=== PATIENT | male | born 1940 | race Caucasian/White ===

== ENCOUNTER 2020-07-25 08:11 | Outpatient (CLI) | payer MEDICARE, SELFPAY ==
--- NOTE | 2020-07-26 14:31 | WPDHOMESLEEP ---
Sleep Study - Home Date of Study: 07/25/20 Ordering Provider: Laura Mckeon MD Interpreting Physician: Laura Mckeon MD Home Sleep Study Type: Apnea Link Air Height: 1.75 m Weight: 97.069 kg Body Mass Index: 31.6 Oil Trough: 13 Reason for Sleep Study History of CPAP since 1989, using same device which broke 2 months ago Sleep History Ayan Mondragon is a 79 year old man man started using CPAP in the with good response, and has continued to use the same device until 2 months ago when it broke. He snores, occasionally has trouble falling asleep with a cold, occasionally wakes up gasping for breath and occasionally has breathing problems at night witnessed by others. Rarely sweats excessively at night, and does not notice his heart pounding or beating irregularly at night. He occasionally falls asleep in the day, never while driving or involuntarily. He does not feel paralyzed on falling asleep or waking, occasionally has vivid dream like scences on waking or falling asleep. He is never afraid to go to sleep and does not have nightmares. He occasionally remembers his dreams. He does not feel sad or depressed, anxious, and does not have racing thoughts. He denies muscular tension, rarely notices parts of his body jerking, occasionally kicks at night. He does not have uncomfortable feelings in his legs at night. He does not grind his teeth at night, is not awakened by pain at night, rarely feels stiff in the am. He has headaches. Bedtime is 9:00 p.m. falling asleep quickly, wakes throughout the night in the early, middle of the night and in the product assembler hours for 15 minutes or longer, waking at 5:00 am, not feeling refreshed. CPAP is not giving him the same level of improvement at it did initially. Best body position at night is on his side then he rolls to his back and eventually is on his left side. He drinks 2-3 cups of coffee in the morning, occasionally takes a nap. 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 His memory, mood and concentration are acceptable for his daily needs in long term. He has a strong family history of dementia, and wants SANAM treated to avoid the termite control representative possibility of this condition. [facility] Past Medical History Medical History (Updated 07/26/20 @ 14:50 by Laura Mckeon MD) Hyperlipemia Hypertension Obstructive sleep apnea Skin cancer, upper extremity left hand and elbow, removed Sleep apnea Surgical History Surgical History (Updated 04/18/20 @ 12:56 by Laura Mckeon MD) History of hernia repair History of knee surgery R TKR S/P carpal tunnel release Family History Family History (Updated 04/18/20 @ 12:54 by Laura Mckeon MD) Mother , age 82 with dementia, breast cancer Breast cancer Sibling , Natasha March 2020, @ 85, dementia Dementia Father , age 42, cancer, boilermaker welder in [place] War [place] No problems noted. Sibling , Bernardo @ 57 yo colon cancer Colon cancer Sibling , Du from CHF, acromegaly, worked for [employer] Heart disease CHF Sibling , Eric @ 57 CHF, worked for [employer], [employer]. 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 He also has his grandson, grandson's , 2-year-old and baby living with them. He was in the service in 1958. Smoking packs per day: 1 Smoking cigarettes per day: 20.0 Years smoked: 35 Smoking pack-years: 35.00 Smoking status: Former smoker Tobacco type: cigarettes Alcohol intake: current Drinks per week: 2 Substance use: never Medications aspirin 81 mg tablet,delayed release 81 mg PO DAILY 04/18/20 [History] lisinopril 20 mg-hydrochloro
[2020-07-26 15:08] VITALS: BMI 31.6
== END 2020-07-25 08:12 | disposition home or self-care (01) ==
LOC: ANHCSM 08:12
PROVIDERS: Visit Provider Internal Medicine Critical Care Medicine
DX: G47.33 Obstructive sleep apnea (adult) (pediatric) (principal)
CPT/HCPCS: 95806

== ENCOUNTER 2023-07-17 15:29 | Emergency (ER) | payer MEDICARE, SELFPAY ==
[2023-07-17] VITALS (19 sets, daily range): BP systolic 105–182; BP diastolic 43–89; PULSE 70–117; RESP 12–23; TEMP 37.2; O2SAT 96–100
--- NOTE | ~2023-07-17 | XR_ITS ---
EXAMINATION: XR chest 2V DATE: 07/17/2023 16:13 INDICATION: Chest pain TECHNIQUE: PA and lateral views of the chest are obtained. COMPARISON: None available FINDINGS: There are bibasilar airspace opacities. There is a small right pleural effusion. No pneumot horax is identified. Cardiomegaly is noted. There are bridging osteophytes at multiple levels in the spine, consistent with diffuse idiopathic skeletal hyperostosis (DISH). There is a questionable fusif orm aneurysm of the ascending aorta. IMPRESSION: 1. Bibasilar airspace opacities, consistent with atelectasis versus pneumonia. 2. Small right pleural effusion. 3. Cardiomegaly. 4. 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 Reviewed, dictated and finalized at location L.
--- NOTE | 2023-07-17 15:37 | ECG_ITS ---
Measurements Intervals [place] Rate: 71 P: CT: 0 QRS: 59 QRSD: 155 T: 48 QT: 432 QTc: 473 Interpretive Statements SINUS RHYTHM WITH FIRST DEGREE AV BLOCK RIGHT BUNDLE BRANCH BLOCK BASELINE ARTIFACT- I, II, III, AVR, AVL, AVF, V1-V2 ABNORMAL ECG NO PREVIOUS ECG AVAILABLE FOR COMPARISON Electronically Signed On 07-17-2023 15:52:09 CDT by Stephan Guillory D.O.
[2023-07-17 16:09] LABS: Basophils Percent Auto 0.5 % (0.2-1.2); Eosinophils Absolute Auto 0.1 K/mm3 (0-0.3); Eosinophils Percent Auto 1.8 % (0-4.4); Hematocrit 37.5 % (42.0-52.0); Hemoglobin 12.2 g/dL (14.0-18.0); Immature Granulocyte Absolute 0.01 K/mm3 (0.00-0.031); Immature Granulocyte Percent A 0.2 % (0-0.5); Lymphocytes Percent Auto 30.3 % (18.3-44.2); Mean Corpuscular HGB Conc 32.5 g/dl (32-36); Mean Corpuscular Hemoglobin 30.5 pg (26-34); Mean Corpuscular Volume 93.8 fl (80-100); Mean Platelet Volume 10.7 fl (7.4-10.4); Monocytes Absolute Auto 0.4 K/mm3 (0.1-0.6); Monocytes Percent Auto 6.6 % (2.6-8.5); Neutrophils Absolute Auto 3.6 K/mm3 (1.3-6.7); Neutrophils Percent Auto 60.6 % (45.5-73.1); Platelet Count Result 147 k/mm3 (150-375); Red Cell Distribution Width 13.6 % (11.5-14.5)
[2023-07-17 16:20] LABS: Partial Thromboplastin Time 27.1 SECONDS (22.3-36.8)
[2023-07-17 16:21] LABS: Alanine Aminotransferase 18 U/L (6-50); Albumin Level 4.7 g/dL (3.5-5.1); Alkaline Phosphatase 113 U/L (38-126); Anion Gap 10 mmol/L (8-16); Aspartate Amino Transferase 26 U/L (17-59); Bilirubin,Total 1.2 mg/dL (0.2-1.3); Blood Urea Nitrogen 37 mg/dL (9-20); Calcium 9.4 mg/dL (8.4-10.2); Carbon Dioxide 27 mmol/L (22-30); Chloride 103 mmol/L (98-107); Estimated CRCL calculation 36 ml/min; Estimated Glomerular Filt Rate 45; Glucose 124 mg/dL (65-110); Lipase 137 U/L (23-300); Potassium 3.9 mmol/L (3.4-5.0); Sodium 140 mmol/L (137-145)
[2023-07-17 16:32] LABS: Troponin I < 0.012 ng/mL (0.000-0.034)
--- NOTE | 2023-07-17 18:21 | ED.GENADULT ---
HPI - General Adult General Chief complaint: Unspecified Stated complaint: eye problem, increased pain Time Seen by Provider: 07/17/23 17:58 Source: patient Mode of arrival: ambulatory Limitations: other (very hard of hearing) History of Present Illness HPI narrative: This is a 82 year old male that presents to the ER for right eye pain. Ongoing since last night. Reports this morning when he woke up his vision was worse than usual. Reports history of macular degeneration. Reports he has had persistent vision loss since end of last year. Although, usually he is able to see fairly clearly on 1 of the sides of his vision. Reports since this morning all of the vision in his right eye is very blurry. He is able to make out shapes. He does follow with an school boat driver for his macular degeneration at [facility]. He reports some redness in his eye and tearing. Reports when his eye was tearing this morning his nose started to get watery knee felt like he was having trouble breathing. Reports having a pressure-like pain on the right side of his chest. This was relieved without intervention. He does have a data center engineer that he sees and just had an appointment with him 5 days ago. He denies any current chest pain. No known history of coronary artery disease. Does report some lower extremity edema that is chronic for him. Denies fever or cough. Related Data Home Medications Medication Instructions Recorded Confirmed lisinopril 20 1 tablet PO DAILY 04/18/20 04/30/23 mg-hydrochlorothiazide 25 mg tablet pravastatin 20 mg tablet 20 mg PO DAILY 04/18/20 04/30/23 amlodipine 10 mg tablet 10 mg PO DAILY 05/01/22 04/30/23 furosemide 20 mg tablet 10 mg PO QAM 05/01/22 04/30/23 levothyroxine 25 mcg capsule 25 mcg PO DAILY 05/01/22 04/30/23 ferrous sulfate 325 mg (65 mg 325 mg PO .Every Other Day 04/30/23 04/30/23 iron) tablet Allergies Allergy/AdvReac Type Severity Reaction Status Date / Time No Known Allergies Allergy Verified 04/30/23 09:33 Review of Systems Review of Systems: CONSTITUTIONAL: Denies fever EYES: Reports visual changes, redness. Denies discharge. CARDIOVASCULAR: Reports chest pain and edema. Denies palpitations RESPIRATORY: Reports dyspnea. All systems reviewed & are unremarkable except as noted in HPI and below PMFSH Past Medical History Medical History Hyperlipemia Hypertension Obstructive sleep apnea Skin cancer, upper extremity left hand and elbow, removed Sleep apnea Surgical History Surgical History History of hernia repair History of knee surgery R TKR S/P carpal tunnel release Family History Family History Mother , age 82 with dementia, breast cancer Breast cancer Sibling , Natasha March 2020, @ 85, dementia Dementia Father , age 42, cancer, welder setter resistance machine in [place] No problems noted. Sibling , Bernardo @ 57 yo colon cancer Colon cancer Sibling , Du from CHF, acromegaly, worked for [employer] Heart disease CHF Sibling , Eric @ 57 CHF, worked for [employer], [employer]. 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 He also has his grandson, grandson's , 2-year-old and baby living with them. He was in the service in 1958. Smoking packs per day: 1 Smoking cigarettes per day: 20.0 Years smoked: 35 Smoking pack-years: 35.00 Smoking status: Former smoker Tobacco type: cigarettes Alcohol intake: current Drinks per week: 2 Alcohol use details: 1-2 Drinks pe
[2023-07-17 18:36] LABS: NT Pro B Type Natriuretic Pept 1440 pg/mL (19.9-100)
[2023-07-17 19:12] LABS: Troponin I < 0.012 ng/mL (0.000-0.034)
[2023-07-17] MEDS: FLUORESCEIN SOD 1 MG/STRIP (20:00)
== END 2023-07-17 22:07 | disposition home or self-care (01) ==
PROVIDERS: Emergency Medicine; Emergency Provider Physician Assistant; PCP Internal Medicine
DX: H57.11 Ocular pain, right eye (principal); H54.7 Unspecified visual loss; J90 Pleural effusion, not elsewhere classified; R07.81 Pleurodynia; R07.89 Other chest pain; H35.30 Unspecified macular degeneration; I10 Essential (primary) hypertension; E78.5 Hyperlipidemia, unspecified; G47.33 Obstructive sleep apnea (adult) (pediatric); G47.30 Sleep apnea, unspecified; Z85.828 Personal history of other malignant neoplasm of skin; Z87.891 Personal history of nicotine dependence; I44.0 Atrioventricular block, first degree; I45.10 Unspecified right bundle-branch block; I51.7 Cardiomegaly; R93.1 Abnormal findings on diagnostic imaging of heart and coronary circulation
CPT/HCPCS: 36415; 71046; 80053; 83690; 83880; 84484; 85025; 85610; 85730; 93005; 99284

== ENCOUNTER 2023-09-26 12:07 | Emergency (ER) | payer MEDICARE, SELFPAY ==
[2023-09-26 12:22] VITALS: BP 129/37; PULSE 86; RESP 20; TEMP 37.7; O2SAT 93
--- NOTE | 2023-09-26 12:26 | ED.GENADULT ---
HPI - General Adult General Chief complaint: Upper Respiratory Infection Stated complaint: Cough,Congestion,Shortness of Breath Source: patient and family Mode of arrival: ambulatory Limitations: no limitations History of Present Illness HPI narrative: 82-year-old male presents to [facility] with complaint productive cough, wheezing, shortness of breath for last 3-4 days. Patient has worsening lower extremity edema. Patient had pacemaker placed at [facility] 2 weeks ago. Patient visibly in distress when presenting to urgent care. Related Data Home Medications Medication Instructions Recorded Confirmed lisinopril 20 1 tablet PO DAILY 04/18/20 09/26/23 mg-hydrochlorothiazide 25 mg tablet pravastatin 20 mg tablet 20 mg PO DAILY 04/18/20 09/26/23 amlodipine 10 mg tablet 10 mg PO DAILY 05/01/22 09/26/23 furosemide 20 mg tablet 10 mg PO QAM 05/01/22 09/26/23 levothyroxine 25 mcg capsule 25 mcg PO DAILY 05/01/22 09/26/23 ferrous sulfate 325 mg (65 mg 325 mg PO .Every Other Day 04/30/23 09/26/23 iron) tablet Allergies Allergy/AdvReac Type Severity Reaction Status Date / Time No Known Allergies Allergy Verified 09/26/23 12:09 Review of Systems Constitutional: Constitutional: Reports as per HPI and Reports weakness Eyes: Eyes: Reports no additional eye complaints ENT: Reports nasal congestion Cardiovascular: Cardiovascular: Reports as per HPI Comments: Bilateral lower extremity edema. Respiratory: Respiratory: Reports as per HPI, Reports cough, Reports dyspnea and Reports wheezing Neurologic: Reports system reviewed and no additional complaints, except as documented [facility] Past Medical History Medical History Hyperlipemia Hypertension Obstructive sleep apnea Skin cancer, upper extremity left hand and elbow, removed Sleep apnea Surgical History Surgical History History of hernia repair History of knee surgery R TKR S/P carpal tunnel release Family History Family History Mother , age 82 with dementia, breast cancer Breast cancer Sibling , Natasha March 2020, @ 85, dementia Dementia Father , age 42, cancer, service tech/welder in [place] War [employer] No problems noted. Sibling , Bernardo @ 57 yo colon cancer Colon cancer Sibling , Du from CHF, acromegaly, worked for [employer] Heart disease CHF Sibling , Eric @ 57 CHF, worked for [employer], [employer]. 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 He also has his grandson, grandson's , 2-year-old and baby living with them. He was in the service in 1957. Smoking packs per day: 1 Smoking cigarettes per day: 20.0 Years smoked: 35 Smoking pack-years: 35.00 Smoking status: Former smoker Tobacco type: cigarettes Alcohol intake: current Drinks per week: 2 Alcohol use details: 1-2 Drinks per week Substance use: never Living arrangements: with family Occupation/Education: retired Comments At the time of my signature, I reviewed and agree with the nursing past medical, surgical, social, and family history. There is no relevant family history pertinent to the patient complaint. Exam Const: General: ill appearing acutely and chronically Nutritional Appearance: well nourished Orientation/consciousness: patient oriented x3 Limitations: physical limitations ( shortness of breath) HENMT: Head: normal to inspection and normocephalic Ears: external ears normal, TM's normal bilaterally, mastoids normal and Abnormal EAC presen
--- NOTE | 2023-09-26 12:45 | ECG_ITS ---
Measurements Intervals [place] Rate: 65 P: 107 [place]: 209 QRS: 24 QRSD: 146 T: 123 QT: 418 QTc: 436 Interpretive Statements ELECTRONIC ATRIAL PACEMAKER ELECTRONIC VENTRICULAR PACEMAKER ABNORMAL RHYTHM ECG COMPARED TO ECG 07/17/2023 15:42:46 CURRENT RHYTHM IS ELECTRONICALLY PACED Electronically Signed On 09-26-2023 13:40:35 PAINT MIXER by Seb Schmitt M.D.
== END 2023-09-26 12:38 | disposition short-term general hospital (02) ==
PROVIDERS: Emergency Provider Registered Nurse; PCP Internal Medicine
DX: R06.00 Dyspnea, unspecified (principal); R94.31 Abnormal electrocardiogram [ECG] [EKG]; R60.0 Localized edema; Z87.891 Personal history of nicotine dependence; E78.5 Hyperlipidemia, unspecified; I10 Essential (primary) hypertension; Z85.828 Personal history of other malignant neoplasm of skin; Z95.0 Presence of cardiac pacemaker
CPT/HCPCS: 93005; 99215; G0463